=== PATIENT | male | born 2000 | race Caucasian/White ===

== ENCOUNTER 2021-06-24 00:03 | Emergency (ER) | payer OTHER, MEDICAID ==
[2021-06-24] MEDS ORDERED: Bacitracin Oint 1 GM U/D Packet TOP ONE (00:18)
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
== END 2021-06-24 01:10 | disposition home or self-care (01) ==
LOC: JP.ED 00:03
DX: S61.212A Laceration without foreign body of right middle finger without damage to nail, initial encounter (principal); S00.01XA Abrasion of scalp, initial encounter; Z88.0 Allergy status to penicillin; S50.812A Abrasion of left forearm, initial encounter; S50.811A Abrasion of right forearm, initial encounter; V58.5XXA Driver of pick-up truck or van injured in noncollision transport accident in traffic accident, initial encounter
CPT/HCPCS: 99284

== ENCOUNTER 2021-06-24 17:19 | Emergency (ER) | payer MEDICAID ==
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
== END 2021-06-24 23:23 | disposition home or self-care (01) ==
LOC: JP.ED 17:19
DX: F10.10 Alcohol abuse, uncomplicated (principal); F41.8 Other specified anxiety disorders; Z88.0 Allergy status to penicillin; Z72.0 Tobacco use; Z20.822 Contact with and (suspected) exposure to COVID-19
CPT/HCPCS: 36415; 80053; 80305-QW; 80307; 81001; 85025; 99284; U0002